=== PATIENT | female | born 1945 | race Caucasian/White ===

== ENCOUNTER 2018-06-11 06:55 | Inpatient (IN) ==
[2018-06-11] MEDS ORDERED: Dexamethasone Inj 20 MG/5 ML Vial IV.PUSH SCH (07:19)
[2018-06-11] MEDS ORDERED: Sodium Chlor 0.9% Inj 500 ML IV.CONT ONE (07:30)
[2018-06-11] MEDS ORDERED: Chlorhexidine 4% Topical 120 APPLIC/120 ML Bottle TOPICAL SCH (07:30)
[2018-06-11] MEDS ORDERED: Metoprolol Tartrate 25 MG Tablet PO ONE (07:30)
[2018-06-11] MEDS ORDERED: Chlorhexidine Gluconate 2% 1 Pack (2 Cloths) TOPICAL ONE (07:30)
[2018-06-11] MEDS ORDERED: TRANEXAMIC ACID IV.SIG SCH ×2 (08:00→13:30)
[2018-06-11] MEDS ORDERED: Vancomycin Inj 1,000 MG in Sodium Chlor 0.9% Inj 250 ML IV.SIG SCH (08:00)
[2018-06-11] MEDS ORDERED: ceFAZolin 2 GM Premix Inj 2 GM/50 ML PIGGYBACK IV.SIG SCH (08:00)
[2018-06-11] MEDS ORDERED: Sodium Chlor 0.9% Inj 40 ML, Bupivacaine Liposo PF 1.3% Inj 20 ML P-ARTICULR SCH ×2 (08:00)
[2018-06-11] MEDS ORDERED: SODIUM CHLOR 0.9% IV.SIG SCH ×2 (08:00→13:30)
[2018-06-11] MEDS ORDERED: Sodium Chlor 0.9% Inj 40 ML, Bupivacaine Liposo PF 1.3% Inj 20 ML P-ARTICULR ONE ×2 (09:43)
[2018-06-11] MEDS ORDERED: Bisacodyl 10 MG Supp RECTAL PRN (11:31)
[2018-06-11] MEDS ORDERED: Aluminum/Magnesium/Simethacone Susp 30 ML UDC PO PRN (11:31)
[2018-06-11] MEDS ORDERED: Morphine Inj 4 MG/ML Vial IV.PUSH PRN (11:31)
[2018-06-11] MEDS ORDERED: Acetaminophen/Codeine 300/30 MG Tablet PO PRN (11:31)
--- NOTE | 2018-06-11 11:41 | P.OP ---
- Preoperative Diagnosis (1) Osteoarthritis of right hip - Postoperative Diagnosis (1) Osteoarthritis of right hip Date of procedure: 06/11/18 Anesthesia: spinal Surgeon: Rosas Harrison MD Non Morse Intercept Technician: RADHA Travis The surgical procedure was assisted by my Advanced Registered Nurse Practitioner. My PROJECT MANAGEMENT IT SPECIALIST presence was necessary throughout this case for the manipulation and positioning of the surgical extremity. My PROJECT MANAGEMENT IT SPECIALIST was assisting me throughout the duration of this procedure. The skill set of an Advance Registered Nurse Practitioner was medically necessary to complete this procedure. During the surgical case, the registered nurse surgical services was working at the back table and the Advance Registered Nurse Practitioner was directly assisting me. Operation and Findings: IMPLANT DESCRIPTION (Starriseruy): 1. Menlo Gription Cup, acetabular size 50. 2. Menlo AltrX polyethylene, neutral. 4. Corail femoral stem size 12, no collar, high offset. 5. Femoral head/neck metal, 32, +1. ESTIMATED BLOOD LOSS: 350 cc. JUSTIFICATION FOR PROCEDURE: The patient has end-stage osteoarthritis to the hip. There is an attached conservative measures pathway form in the chart that describes the nonoperative measures that were undertaken prior to consideration of surgical management. The patient understood the risks and benefits of surgical management. See my office notes for further details. PROCEDURE: The patient was brought back to the operative theatre. Adequate anesthesia was obtained. The patient received intravenous vancomycin and Ancef. The patient was carefully placed on the operative table. The lower extremity was prepped and draped in the usual sterile fashion. Fluoroscopic images were obtained. We made a standard anterior incision over the hip. We dissected through the TFL fascia, exposing the anterior capsule. Arthrotomy was performed in a T-shaped fashion. The capsule was tagged with a #2 FiberWire. End-stage arthritis was identified. Osteotomy was performed through the femoral neck exposing the acetabulum. Remnants of the labrum were resected and osteophytes were removed. We sequentially reamed the acetabulum. We trialed the hip and placed the final cup into position. This was done under fluoroscopic guidance to obtain the appropriate inclination and anteversion. A manhole cover was placed into the acetabular component. We then placed the final polyethylene into position and confirmed that it was well seated. Capsular attachments on the calcar and the inner aspect of the greater trochanter were resected. On the proximal aspect of the femur we used a rongeur , box osteotome, canal finder, sequential broaches and lateralizing rasp. We calcar planed the proximal femur. Then thoroughly irrigated the wound. We trialed the hip with the appropriate size stem. We placed the final stem in to position and trialed again. The hip was stable while it was externally rotated 70 degrees when the leg was lowered to the floor. The final head was applied, and final fluoroscopic images were obtained. The wound was thoroughly irrigated again. Interarticular injection of liposomal bupivacaine was given. The capsule was closed with #2 FiberWire and #1 Vicryl. The deep fascia was closed with a #2 Stratafix, followed by 2-0 Vicryl in the skin and Dermabond dressing. Postop plan is to weight-bear as tolerated. DVT prophylaxis will be performed with SCDs, ROSEANNE ron, early mobilization, and aspirin.
[2018-06-11] MEDS ORDERED: Post-op Orders (for Pharmacy) OTHER STA (11:58)
[2018-06-11] MEDS: Sod Chloride 0.9% Inj 1,000 ML IV.CONT SCH (12:00)
[2018-06-11] MEDS ORDERED: *morphine SULFATE 4 MG/ML PERIprocedure ONLY ONE ×3 (12:21→13:07)
--- NOTE | 2018-06-11 12:37 | XR ---
EXAM DATE: 06/11/2018 12:19 PM EST AGE/SEX: 73 years / Female INDICATIONS: Post-op total right hip arthroplasty. CLINICAL DATA: This is the patient's initial encounter. Patient reports that signs and symptoms have been present for 1 day and indicates a pain score of Nonresponsive. MEDICAL/SURGICAL HISTORY: Non-responsive. Non-responsive. COMPARISON: No prior exams available for comparison. FINDINGS: 3 spot intraoperative fluoroscopic views of the right hip demonstrate a total hip arthroplasty. CONCLUSION: Right hip arthroplasty. Electronically signed by: Carlos Sims MD Board Certified Radiologist 06/11/2018 12:35 PM EST
--- NOTE | 2018-06-11 12:43 | XR ---
EXAM DATE: 06/11/2018 12:41 PM EST AGE/SEX: 73 years / Female INDICATIONS: Post operative right hip replacement. CLINICAL DATA: This is the patient's initial encounter. Patient reports that signs and symptoms have been present for 1 day and indicates a pain score of 8/10. MEDICAL/SURGICAL HISTORY: None. None. COMPARISON: [facility] – [place], HIP RIGHT 2V, 06/11/2018. . FINDINGS: Right total hip arthroplasty is identified. The femoral and acetabular components appear well seated. Moderate narrowing left hip with acetabular osteophyte formation seen. There is some subcutaneous ai r about the right hip as expected. CONCLUSION: Postop right hip arthroplasty, satisfactory appearance. Electronically signed by: Carlos Sims MD Board Certified Radiologist 06/11/2018 12:42 PM EST
--- NOTE | 2018-06-11 14:57 | P.DCO ---
- Physical Therapy Physical Therapy: Gait training, Transfer training, bed to chair Hip: Total hip Right Lower Extremity Weight Bearing: Weight bearing as tolerated Right Lower Extremity Range of Motion: Active ROM - Nursing Dressing changes: Do not change dressing Additional instructions: First dressing change in the office. - Case Management Consult Case Management Consult-Home Health: Yes - Certification Need for Home Health services: I have seen patient Luciana Rowell on 06/11/18. My clinical findings support the need for the requested home health care services because: Need for Home Health Services: Limited ability to care for self, High risk of falls Homebound Certification: I certify that my clinical findings support that this patient is homebound because: Homebound Certification: Post-op weakness, Unsteady gait/balance
[2018-06-11] MEDS ORDERED: ceFAZolin 1 GM Premix Inj 1 GM/50 ML PIGGYBACK IV.SIG ONE (15:49)
[2018-06-11] MEDS: ceFAZolin Inj 1 GM in Sodium Chlor 0.9% Inj 100 ML IV.SIG SCH ×2 (16:00→23:14)
[2018-06-11 18:33] VITALS: RESP 18
[2018-06-11] MEDS: Acetaminophen/Codeine 300/30 MG Tablet PO PRN (20:01)
[2018-06-11] MEDS: Multivitamin/Minerals Therapeutic Tablet PO SCH (20:04)
[2018-06-11] MEDS: Senna/Docusate Sodium 8.6/50 MG Tablet PO SCH (20:04)
[2018-06-11] MEDS ORDERED: Zolpidem Tartrate 5 MG Tablet PO PRN (21:00)
[2018-06-12] MEDS: Sod Chloride 0.9% Inj 1,000 ML IV.CONT SCH ×2 (01:16→12:53)
[2018-06-12] MEDS: ceFAZolin Inj 1 GM in Sodium Chlor 0.9% Inj 100 ML IV.SIG SCH (03:24)
[2018-06-12] MEDS: Acetaminophen/Codeine 300/30 MG Tablet PO PRN ×3 (05:11→12:57)
--- NOTE | 2018-06-12 07:29 | P.PNOP ---
Subjective Interval history: Patient is resting comfortably in bed in no acute distress. The patient reports minimal pain to the right hip. The patient states she would like to go home today. Physical Exam Vital signs: Vital Signs 06/11/18 07:40 06/11/18 11:57 06/11/18 12:15 Temperature 98.6 F 97.5 F L Pulse Rate 74 61 54 L Respiratory Rate 16 15 17 Blood Pressure 123/69 104/60 108/73 Pulse Oximetry 95 93 L 98 06/11/18 12:30 06/11/18 12:45 06/11/18 13:15 Temperature Pulse Rate 52 L 62 62 Respiratory Rate 15 16 16 Blood Pressure 107/55 L 104/62 128/64 Pulse Oximetry 99 100 98 06/11/18 13:24 06/11/18 14:00 06/11/18 14:30 Temperature Pulse Rate 74 66 74 Respiratory Rate 15 15 15 Blood Pressure 133/69 137/60 137/70 Pulse Oximetry 98 98 99 06/11/18 15:00 06/11/18 16:00 06/11/18 16:15 Temperature 97.5 F L 97.8 F Pulse Rate 67 64 96 H Respiratory Rate 17 17 18 Blood Pressure 132/62 140/92 H 114/69 Pulse Oximetry 99 98 96 06/11/18 19:35 06/11/18 23:46 06/12/18 03:40 Temperature 97.9 F 98.4 F 98.7 F Pulse Rate 101 H 91 H 86 Respiratory Rate 18 18 18 Blood Pressure 115/72 102/59 L 103/55 L Pulse Oximetry 95 94 L 93 L Intake & Output 06/11/18 06/12/18 06/12/18 18:59 06:59 18:59 Intake Total 2208.32 / 2208.32 940 / 940 Output Total 350 / 350 Balance 1858.32 / 1858.32 940 / 940 Weight 77.111 kg 88.1 kg Intake: IV 1508.32 / 1508.32 200 / 200 LR 1000 mL Inj 1,000 ML @ 30 1000 / 1000 mls/hr IV.CONT .Q24H ONE Rx#: [id number] Cyklokapron Inj 832 MG In NS 108.32 / 108.32 Inj 100 ML @ 200 mls/hr IV.SIG MIS SPECIALIST [facility] Rx#:[id number] Vancomycin Inj 1,000 MG In NS 250 / 250 Inj 250 ML @ 250 mls/hr IV.SIG MIS SPECIALIST [facility] Rx#:[id number] Ancef 2 GM Premix Inj 2 gm In 50 / 50 50 ml @ 100 mls/hr IV.SIG MIS SPECIALIST [facility] Rx#:[id number] Ancef Inj 1 GM In NS Inj 100 ML 100 / 100 200 / 200 @ 200 mls/hr IV.SIG Q6H [facility] Rx #:[id number] Oral 740 / 740 Anesthesia Amount 700 / 700 Output: Estimated Blood Loss 350 / 350 Other: # Voids 3 3 Date of Last Bowel Movement 06/10/18 06/10/18 # Bowel Movements 0 Weight On Admission 83.2 kg Narrative: The patient's dressing is clean, dry, and intact. EHL/TA/G are intact. 2+ pedal pulse. The patient's calf is soft and nontender. Sensation is intact to light touch distally. Results - Labs Laboratory Results - last 24 hr 06/11/18 07:26 Blood Type O Positive Blood Type Recheck Not needed Antibody Screen Negative - Imaging Impressions Hip X-Ray 06/11/18 00:00 CONCLUSION: Right hip arthroplasty. Hip X-Ray 06/11/18 11:31 CONCLUSION: Postop right hip arthroplasty, satisfactory appearance. - Procedures Right total hip arthroplasty Assessment and Plan - Problem List (1) Status post total hip replacement, right Code(s): Z96.641 - Presence of right artificial hip joint Status: Acute (2) Osteoarthritis of right hip Code(s): M16.11 - Unilateral primary osteoarthritis, right hip Status: Acute - Assessment and Plan POD #1: [Right] total hip arthroplasty 1. Weightbearing as tolerated on [right] lower extremity. 2. Lovenox for DVT prophylaxis. 3. Ice as needed for swelling. 4. Stable per ortho for discharge to home with home health today 5. The patient will follow up with Dr. Harrison and/or RADHA Black as previously scheduled. 6. Patient unable to have lab work this morning due to no needle sticks on the bilateral upper extremities secondary to bilateral mastectomies. No lab work is necessary. The patient had minimal blood loss during surgery.
[2018-06-12] MEDS ORDERED: Dexamethasone Inj 20 MG/5 ML Vial IV.PUSH ONE (08:00)
[2018-06-12 08:04] VITALS: BP 99/50; PULSE 80; TEMP 98.1; O2SAT 95
[2018-06-12] MEDS: Multivitamin/Minerals Therapeutic Tablet PO SCH (09:28)
[2018-06-12 10:36] LABS: Hematocrit 32.1 % (35.0-46.0); Hemoglobin 10.7 gm/dL (11.6-15.3)
[2018-06-12] MEDS: Senna/Docusate Sodium 8.6/50 MG Tablet PO SCH (12:50)
--- NOTE | 2018-06-13 14:38 | P.DS ---
Date of admission: 06/11/18 06:55 Primary care physician: Viktor Ortiz Attending physician on discharge: Rosas Harrison Anticipated date of discharge: 06/12/18 Brief History from admission: The patient was admitted to the hospital for severe OA of the right hip to have a right ROSA DS: Diagnosis - Discharge Diagnosis (1) Status post total hip replacement, right Status: Acute (2) Osteoarthritis of right hip Status: Acute DS: Medications - Discharge Medications Prescriptions: acetaminophen-codeine [Tylenol-Codeine #3] 1 - 2 tab PO Q6H PRN #50 tab PRN Reason: Pain DS: Summary Hospital Course: The patient was admitted to the hospital for severe osteoarthritis of the [right ] hip to have a [right] total hip arthroplasty. The patient's surgery went well with no complication. The patient is on a [regular] diet. The patient's DVT prophylaxis includes use of [Lovenox for 21 days]. The patient is weightbearing as tolerated. The patient was discharged [home with home health] and will follow up in the office with Dr. Harrison and/or RDAHA Black as previously scheduled. - Time Spent with Patient Total time spent providing and/or coordinating discharge services: Greater than 30 minutes - Quality: VTE Deep Vein Thrombosis/Pulmonary Embolism Present on Admission: Yes Exam Vital signs: Intake & Output 06/12/18 06/13/18 06/13/18 18:59 06:59 18:59 Other: Date of Last Bowel Movement 06/10/18 Narrative: The patient's dressing is clean, dry, and intact. EHL/TA/G are intact. 2+ pedal pulse. The patient's calf is soft and nontender. Sensation is intact to light touch distally. Results Procedures completed during hospitalization: Right total hip arthroplasty - Impressions ITS Impressions Hip X-Ray 06/11/18 11:31 CONCLUSION: Postop right hip arthroplasty, satisfactory appearance. Discharge Plan - Discharge Disposition Patient Disposition: Disch W/Home Health Service - Discharge Condition Condition: Stable - Discharge Order Discharge Orders: Discharge Order (Routine); Ordered 06/11/18 Ordered By: Jens Stahl - Discharge Details Anticipated Discharge Date: 06/12/18 - Physicians Team Primary Care Provider: Viktor Ortiz Attending Provider: Rosas Harrison Other Providers: [employer] - Rxs /Orders / Referrals /Forms Prescriptions: New acetaminophen-codeine [Tylenol-Codeine #3] 300-30 mg Tablet 1 - 2 tab PO Q6H PRN (Reason: Pain) Qty: 50 RF: 0 Ambulatory Orders / Order Sets / DME: Adjustable Commode 3-in-1 (1 each) (Routine) Location: Determined by Patient Ordered By: Jens Stahl Walker With Front Wheels (1 each) (Routine) Location: Determined by Patient Ordered By: Jens Stahl Referrals: [facility] [Outside] - See Instructions Rosas Harrison MD [Physician] - See Instructions (The patient will f/u as previously scheduled with Dr. Harrison or López Stahl APRN. Your appointment has been scheduled for 06/19/18 at 1:20 pm. If you cannot make this appointment, please call the office to reschedule ) Viktor Ortiz M.D. [Primary Care Provider] - See Instructions - Discharge Instructions Patient Printed Instructions: How to Use an Incentive Spirometer (DC), Narcotic Safety (DC), Fall Prevention (DC), Total Hip Replacement (DC), Deep Vein Thrombosis Prevention (DC) Additional Instructions: WEIGHT BEARING TOLERATED FIRST DRESSING CHANGE WILL BE DONE IN OFFICE CALL OFFICE TO CONFIRM OR SCHEDULE F/U APPT SOON DISCHARGED TAKE MEDICATIONS PRESCRIBED - Post Discharge Care Plan Care Plan Goals: Discharge Care Plan Goals for Total Hip Replacement You had a hip replacement surgery. This means your natural hip was replaced with an artificial joint (prosthesis). You may be recovering at home or in a rehabilitation facility. Either way, you must take care of your new hip. Here are some goals to help you heal well. Directions to Meet your Goals: 1. Activity & Exercises: * Take pain medicine as directed by your doctor. * Dont drive until your doctor says its OK. And never drive while taking opioid pain medicine. * Wear the support stockings you were given in the hospital as directed by your surgeon. * Dont sit for more than 30 to 45 minutes at one time. * Dont lean forward while sitting. * Dont cross your legs. * Keep your feet flat on the floor. Dont turn your foot or leg inward. This stresses your hip joint. * Use an elevated toilet seat for 6 weeks after surgery. * Nap if you are tired, but dont stay in bed all day. * Sit on a firm cushion when you ride in a car and avoid sitting too low. Try not to bend your hip too much when getting in and out of the car. 2. Prevent Falls/Injury: * Follow your doctors orders regarding how much weight to put on the affected leg. * Dont bend at the hip when you bend over. Don't bend at the waist to put on socks and shoes. And avoid picking up items from the floor. * Use a cane, crutches, a walker, or handrails until your balance, flexibility, and strength improve. And remember to ask for help from others when you need it. * Free up your hands so that you can use them to keep balance. Use a lisa pack , apron, or pockets to carry things. * Arrange your household to keep the items you need handy. Keep everything else out of the way. * Remove items that may cause you to fall, such as throw rugs and electrical cords. * Use nonslip bath mats, grab bars, an elevated toilet seat, and a shower chair in your bathroom * Sit on a shower stool or chair when you shower to keep from falling. 3. Precautions: * Prevent infection. Any infection will need to be treated immediately. Call your doctor right away if you think you might have an infection. * Tell your dentist that you have an artificial joint and take antibiotics as prescribed before any dental work. * Tell all your healthcare providers about your artificial joint before any medical procedure. * Maintain a healthy weight. Get help to lose any extra pounds. Added body weight puts stress on the joints. 4. Incision Care: * Prevent infection by washing your hands often. If an infection occurs, it will need to be treated right away. * Call your doctor right away if you think you may have an infection. Symptoms include a fever or an incision that leaks white, green, or yellow fluid. * Don't soak your incision in water until your doctor says its OK. This means no hot tubs, bathtubs, or swimming pools. * Follow your doctor's instructions for changing the dressing. * Dont rub the incision, or apply creams or lotions to it. * If you notice any redness or drainage around the bandage site, contact your surgeon's office immediately. 5. Follow-Up: Do Not miss your follow-up appointment. Keep up with all your appointments and yearly check ups When to call your doctor: Call your doctor right away if you have: Hip pain gets worse Pain or swelling in your calf or leg not related to your incision Tenderness or redness in your calf Fever of 100.4F (38C) or higher, or as directed by your healthcare provider Shaking chills Swelling or redness at the incision site gets worse Fluid draining from the incision Call 911: Call 911 right away if you have: Chest pain Shortness of breath Any pain or tenderness in your calf
== END 2018-06-12 14:12 | disposition home health service (06) | DRG 470 ==
LOC: HSDI 06:55 → N06 16:11
PROVIDERS: ADMIT Orthopaedic Surgery; ATTEND Orthopaedic Surgery
CPT/HCPCS: 73502; 76000; 85014; 85018; 86850; 86900; 86901; 97110; 97116; 97150; 97162; C1776; C9290; J0690; J1100; J2270; J3370; J7030; J7050; J7120